=== PATIENT | male | born 1975 | race Caucasian/White ===

== ENCOUNTER 2017-11-16 09:10 | Emergency (ER) | payer BC ==
--- NOTE | 2017-11-16 09:49 | EDM.PDOC ---
ED HPI GENERAL MEDICAL PROBLEM - General Chief Complaint: Upper Extremity Injury/Pain Stated Complaint: LEFT SHOULDER INJURY Time Seen by Provider: 11/16/17 09:32 Source of Information: Reports: Patient History Limitations: Reports: No Limitations - History of Present Illness INITIAL COMMENTS - FREE TEXT/NARRATIVE: 42-year-old male presents to the ED after reportedly falling on concrete on Friday, November 12 landing hard on his left elbow. He states initially didn' t think that he was injured to badly. He states is growing is developed increased pain at the elbow proximal forearm and then rating up his left arm in the distribution of his proximal humerus before meals joint and posterior superior aspect of the shoulder blade. States is unable to lift his arm much above 60 due to increased pain. Unable to sleep on that side particularly unable to push himself up from bed or seated position with the left arm. States it's a intermittent deep aching sharp stabbing pain. Patient appears to be in genuine discomfort when he tries to get up from the bed for examination. Denies hitting his head. Onset: Gradual Onset Date: 11/12/17 (Initial trip on assessment curb was on Friday afternoon November 12. He landed hard on his left elbow and jammed up his left shoulder. Initially didn't hurt too bad but was much worse within the next 24 hours. Pain has continued to worsen since time of injury) Duration: Day(s): Location: Reports: Upper Extremity, Left (Left elbow left proximal humerus and left shoulder and scapular area.) Quality: Reports: Ache, Other Severity: Moderate (Pain is sharp and stabbing when he tries to push up from the seated position or lying position.) Improves with: Reports: Rest Worsens with: Reports: Movement Context: Reports: Trauma (Tripped and fell landing hard on his left elbow 4 days ago.). 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.) Left Shoulder Pain Score (Numeric/FACES): 7 - Related Data Home Meds: Home Meds Diclofenac Sodium [Voltaren] 50 mg PO TID #24 tab.ec 11/16/17 [Rx] oxyCODONE HCl/Acetaminophen [Percocet 10-325 mg Tablet] 1 each PO Q6H #15 tablet 11/16/17 [Rx] Past Medical History Musculoskeletal History: Reports: Fracture Dermatologic History: Reports: Cellulitis - Past Surgical History GI Surgical History: Reports: Appendectomy Male Surgical History: Reports: Vasectomy Other Musculoskeletal Surgeries/Procedures:: Ankle surgery Social & Family History - Family History Family Medical History: Noncontributory - Tobacco Use Smoking Status *Q: Never Smoker - Caffeine Use Caffeine Use: Reports: None - Recreational Drug Use Recreational Drug Use: No - Living Situation & Occupation Living situation: Reports: Occupation: Employed Review of Systems - Review of Systems Review Of Systems: See Below Constitutional: Reports: No Symptoms Eyes: Reports: No Symptoms Ears: Reports: No Symptoms Nose: Reports: No Symptoms Mouth/Throat: Reports: No Symptoms Respiratory: Reports: No Symptoms Cardiovascular: Reports: No Symptoms GI/Abdominal: Reports: No Symptoms Genitourinary: Reports: No Symptoms Musculoskeletal: Reports: No Symptoms Skin: Reports: No Symptoms Neurological: Reports: No Symptoms Psychiatric: Reports: No Symptoms ED EXAM, GENERAL - Physical Exam Exam: See Below Exam Limited By: Uncooperative General Appearance: WD/WN, Mild Distress Eye Exam: Bilateral Eye: Normal Inspection Head: Atraumatic, Normocephalic, Other (He can make the left shoulder pain worse with moving his head to the right lateral position as well as flexing his chin on chest. This pain is in the distribution of the supraspinatus and upper trapezius muscle.) Neck: Normal Inspection, Full Range of Motion, Other (He can make the left posterior superior shoulder pain worse with chin on chest position as well as right lateral rotation. HER right lateral flexion of his neck. The pain and swelling along the distribution of the trapezius muscle to the occipital aspect of his neck.). No: Lymphadenopathy (L), Lymphadenopathy (R) Respiratory/Chest: No Respiratory Distress, Lungs Clear, Normal Breath Sounds, Other (Some tenderness on palpation of the distal clavicle as well as the upper anterior ribs left chest as well as the coracoid process of the left scapula.) Cardiovascular: Normal Peripheral Pulses, Regular Rate, Rhythm, No Edema, No Gallop, No Murmur Peripheral Pulses: 3+: Radial (L), Radial (R) GI/Abdominal: Normal Bowel Sounds, Soft, Non-Tender, No Organomegaly Extremities: Other (Examination of his left upper extremity shows that he has decreased ability to fully abduct the left arm without pain. He has pain in his proximal humerus mildly over the before meals joint with warmth and swelling along the before meals joint and superior aspect of the shoulder. There is marked tenderness and swelling in spasm of the superior belly of the trapezius and levator scapula muscle distributions. There is also pain in the mid body of his scapula. Pain in the coracoid process with movement. Biceps muscle appears to be intact. He has full pronation supination at the elbow. There is some slight swelling over the olecranon process and bursa area of the elbow. No bruising evident. Minor superficial scrapes are evident.) Neurological: Alert, Oriented, CN II-XII Intact, Normal Cognition, Normal Gait Psychiatric: Normal Affect, Normal Mood Skin Exam: Warm, Dry, Intact, Normal Color, No Rash Course - Vital Signs Last Recorded V/S: Last Vital Signs Temp 36.9 C 11/16/17 09:15 Pulse 71 11/16/17 09:15 Resp 18 11/16/17 09:15 BP 132/83 11/16/17 09:15 Pulse Ox 96 11/16/17 09:15 - Orders/Labs/Meds Orders: Active Orders 24 hr Category Date Time Status Humerus Lt [CR] Stat Exams 11/16/17 09:45 Taken Shoulder Comp Lt [CR] Stat Exams 11/16/17 09:45 Taken - Radiology Interpretation Free Text/Narrative:: 42-year-old male presents to the ED for evaluation of left shoulder and upper extremity pain. Patient states he tripped over a curb falling on his left elbow hard 4 days ago while at work. She jammed up his left shoulder. Initially didn' t hurt but the next day it started hurting and is progressively worsened since that time. Pain is mostly along the distribution of the supraspinatus and trapezius muscle distribution left shoulder area. There is marked swelling in spasm of this area. Pain in the left scapula 8 in the coracoid process and left upper ribs to 3 and 4. Pain proximal humerus. There is increased warmth and swelling around the before meals joint. I'm not able to distract the before meals joint completely when I pull down his arms equally. There is minus mild swelling and pain over the olecranon process but he has full pronation supination at the elbow. Plan x-ray left shoulder and left humerus. - Re-Assessments/Exams Free Text/Narrative Re-Assessment/Exam: 11/16/17 10:37 x-rays of the left humerus are normal. X-rays of the left shoulder also proved to be normal with no evidence of injury to the acromioclavicular clavicular joint or the scapula . Injuries therefore. To be soft tissue in origin. 11/16/17 10:48 patient was reexamined now that I know there is no bony injuries. Pain is still localized to the superior belly of the trapezius muscle involves the paraspinal muscles of the cervical spine on the left side. There is also evidence alleviate her scapular muscle strain. Rhomboid muscle is mildly strained as well. He does not clinically have any evidence of a rotator cuff tear. Pain appears to be Musca skeletal soft tissue injuries with hematoma formation. Plan is heat to the area for one half hour out of every 4 hours for the next couple couple of days when able. I will place him on Voltaren 50 mg 3 times daily for the next 8 days. Said tabs // usually one or 2 every 4-6 hours for pain relief not controlled by Voltaren alone only at nighttime to help sleep for the next few days. Departure - Departure Time of Disposition: 10:49 Disposition: Home, Self-Care 01 Condition: Fair Clinical Impression: Sprain of cervical neck Qualifiers: Encounter type: initial encounter Qualified Code(s): S13.9XXA - Sprain of joints and ligaments of unspecified parts of neck, initial encounter Strain of left trapezius muscle Qualifiers: Encounter type: initial encounter Qualified Code(s): S46.812A - Strain of other muscles, fascia and tendons at shoulder and upper arm level, left arm, initial encounter Strain of left levator scapulae muscle Qualifiers: Encounter type: initial encounter Qualified Code(s): S46.812A - Strain of other muscles, fascia and tendons at shoulder and upper arm level, left arm, initial encounter - Discharge Information Prescriptions: Diclofenac Sodium [Voltaren] 50 mg PO TID #24 tab.ec oxyCODONE HCl/Acetaminophen [Percocet 10-325 mg Tablet] 1 each PO Q6H #15 tablet Referrals: PCP,None [Primary Care Provider] - Forms: ED Department Discharge Additional Instructions: Evaluation in the emergency room today in regards to injury to the left upper extremity particular the shoulder paraspinal muscles of your left neck and upper back. This occurred after falling with direct blow to the elbow area on November 12. No initial pain but marked pain starting the following day due to soft tissue swelling. Clinically there is marked spasm of the entire trapezius muscle and evidence of levator scapulae muscle swelling as well with limited range of motion in her upper left back. There is spasm of the paraspinal muscles along the left side of your neck as well. Likely there is no evidence of a rotator cuff tear. X-rays of the shoulder and upper extremity extremity humerus bone reveal no fractures. Before meals joint is also intact. Therefore injuries are muscle skeletal lower muscle strain with blood within the tissues from the injury. Today will be her worst day and your body will start to reduce the pain and swelling over the next 1012 days. Heat to the area for one half hour out of every 4 hours when available. Suggest use of Voltaren 50 mils grams 3 times daily for the next 8 days to reduce pain and inflammation. Percocet 10//25 milligram tablets one every 6 hours as needed for pain relief. Of note not postoperative motor vehicle or heavy machinery while taking stronger pain medication. Its primary you should be at bedtime to aid sleep. Of course may use it when you're not at work. Expect 10-12 days before the inflammation and tenderness in the muscle tissue settles down. - My Orders Last 24 Hours: My Active Orders 11/16/17 09:45 Humerus Lt [CR] Stat Shoulder Comp Lt [CR] Stat - Assessment/Plan Last 24 Hours: My Active Orders 11/16/17 09:45 Humerus Lt [CR] Stat Shoulder Comp Lt [CR] Stat
--- NOTE | 2017-11-16 14:26 | CR ---
Left humerus: Two views of the left humerus were obtained. Comparison: No prior study. No fracture or other bony abnormality is appreciated. Impression: 1. Nothing acute is seen on two-view left humerus study. Diagnostic code #1
--- NOTE | 2017-11-16 14:26 | CR ---
Left shoulder: Three views of the left shoulder were obtained. Comparison: No previous study. Acromioclavicular and glenohumeral joints are unremarkable. No acute fracture or other abnormality is appreciated. Impression: 1. No abnormality is appreciated on three-view left shoulder study. Diagnostic code #1
== END 2017-11-16 11:10 | disposition home or self-care (01) ==
LOC: JD.ED 09:10
DX: S46.812A Strain of other muscles, fascia and tendons at shoulder and upper arm level, left arm, initial encounter (principal); S13.9XXA Sprain of joints and ligaments of unspecified parts of neck, initial encounter; Z90.49 Acquired absence of other specified parts of digestive tract; W18.30XA Fall on same level, unspecified, initial encounter
CPT/HCPCS: 73030-26-LT; 73030-LT; 73060-26-LT; 73060-LT; 99283; 99284